=== PATIENT | male | born 1975 | race Caucasian/White ===

== ENCOUNTER 2023-01-23 11:51 | Outpatient (CLI) | payer OTHER | END 2023-01-23 11:52 | disposition critical access hospital (66) | LOC: EMS 11:51 | DX: R25.1 Tremor, unspecified (principal); R07.9 Chest pain, unspecified | CPT/HCPCS: A0425; A0427 ==

== ENCOUNTER 2023-01-23 12:27 | Emergency (ER) | payer OTHER ==
[2023-01-23] MEDS ORDERED: SODIUM CHLORIDE 0.9% 1,000 ML IV STA (12:35)
--- NOTE | 2023-01-23 12:47 | XRAY Report ---
PROCEDURE: Chest 1 View X-Ray INDICATIONS: CP TECHNIQUE: One view of the chest was acquired. COMPARISON: None. FINDINGS: Surgical changes and devices: None. Lungs and pleura: An incomplete inspiratory result is noted, with low lung volumes and crowding of t he vascular markings. No focal infiltrates are seen. No large pneumothorax or large pleural effusion can be seen. Mediastinum: Mediastinal contours appear normal. Heart size is normal. Bones and chest wall: No suspicious bony lesions. Overlying soft tissues appear unremarkable. IMPRESSION: Low lung volumes, without an acute abnormality seen. Reviewed by: Boom Diop MD on 01/23/2023 11:46 AM YELITZA Approved by: Boom Diop MD on 01/23/2023 11:46 AM YELITZA Station ID: [id number]
[2023-01-23 13:03] LABS: BASOPHILS % (AUTO) 0.6 %; EOSINOPHILS % (AUTO) 0.8 %; HCT - HEMATOCRIT 40.9 % (42.0-52.0); HGB - HEMOGLOBIN 13.6 g/dL (14.0-18.0); MEAN CORPUSCULAR HEMOGLOBIN 29.4 pg (27.0-31.0); MEAN CORPUSCULAR HGB CONC 33.3 g/dL (32.0-36.0); MEAN CORPUSCULAR VOLUME 88.5 fL (80.0-94.0); MEAN PLATELET VOLUME 8.6 fL (7.4-11.4); MONOCYTES # (AUTO) 0.5 10^3/uL (0.0-1.0); MONOCYTES % (AUTO) 10.9 %; NEUTROPHILS # (AUTO) 3.3 10^3/uL (1.5-6.6); NEUTROPHILS % (AUTO) 67.1 %; PLT - PLATELET COUNT 229 10^3/uL (130-450); RED BLOOD COUNT 4.62 10^6/uL (4.70-6.10); RED CELL DISTRIBUTION WIDTH 13.2 % (12.0-15.0); WHITE BLOOD COUNT 4.9 x10^3/uL (4.8-10.8)
[2023-01-23 13:16] LABS: ALBUMIN 4.5 g/dL (3.2-5.5); ALBUMIN/GLOBULIN RATIO 2.4 (1.0-2.2); ALKALINE PHOSPHATASE 70 IU/L (42-121); ALT ALANINE AMINOTRANSFERASE 16 IU/L (10-60); AST ASPARTATE AMINOTRANSFERASE 21 IU/L (10-42); BILIRUBIN,TOTAL 0.8 mg/dL (0.2-1.0); BUN - BLOOD UREA NITROGEN 13 mg/dL (6-20); CALCIUM 9.1 mg/dL (8.5-10.3); CARBON DIOXIDE - CO2 20 mmol/L (21-32); CHLORIDE 103 mmol/L (101-111); CK- CREATINE KINASE 105 IU/L (30-223); CREATININE 0.8 mg/dL (0.6-1.3); ETOH - ETHANOL < 10.0 mg/dL; GFR - MDRD 105 (>89); GLUCOSE 127 mg/dL (74-104); LIPASE 13 U/L (11-82); MAGNESIUM 1.6 mg/dL (1.7-2.3); POTASSIUM 3.4 mmol/L (3.5-4.5); SODIUM 136 mmol/L (135-145); TOTAL PROTEIN 6.4 g/dL (6.4-8.9)
[2023-01-23 13:21] LABS: TROPONIN I HIGH SENSITIVITY 3.2 ng/L (2.3-19.7)
--- NOTE | 2023-01-23 14:14 | ED Physician Documentation ---
History of Present Illness - Stated complaint Stated Complaint: TREMORS/ETOH - Chief complaint Chief Complaint: Neuro - History obtained from History obtained from: Patient - Additonal information Additional information: Patient is a 47-year-old male with no significant prior medical history presenting for evaluation of feeling generalized weakness, chest pain and muscle spasms starting around 1030 this morning. Patient states this started while he was showering at home. He reports feeling well prior to this. Denies any nausea, vomiting or diarrhea. He feels that his arms and legs are too heavy to lift. Denies head injury. Reports drinking daily. Denies having alcohol withdrawal symptoms in the past. Last alcohol intake was last night.Denies drug or cannabis use. Review of Systems Constitutional: denies: Fever Cardiac: reports: Chest pain / pressure Respiratory: denies: Dyspnea GI: denies: Abdominal Pain Neurologic: reports: Generalized weakness PD PAST MEDICAL HISTORY - Present Medications Home Medications: Ambulatory Orders Medication Instructions Recorded Confirmed Omeprazole Magnesium 20 mg PO DAILY 01/23/23 01/23/23 - Allergies Allergies/Adverse Reactions: Allergies Allergy/AdvReac Type Severity Reaction Status Date / Time No Known Drug Allergies Allergy Verified 01/23/23 12:32 PD ED PE NORMAL - General General: Alert and oriented X 3, No acute distress, Well developed/nourished - HEENT HEENT: Atraumatic, Moist mucous membranes - Neck Neck: Supple, no meningeal sign - Cardiac Cardiac: RRR, No murmur, Strong equal pulses - Respiratory Respiratory: No respiratory distress, Clear bilaterally - Abdomen Abdomen: Soft, Non tender, Non distended - Derm Derm: Warm and dry - Neuro Neuro: Alert and oriented X 3, 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 Relevant findings are: Rate 84, normal sinus rhythm, no STEMI Rate: Rate (enter#) (84) Rhythm: NSR Ischemia: No: ST elevation c/w ischemia, ST depression Compare to prior EKG: Old EKG unavailable - Labs Labs: Laboratory Tests 01/23/23 01/23/23 01/23/23 12:56 12:56 15:19 WBC 4.9 RBC 4.62 L Hgb 13.6 L Hct 40.9 L MCV 88.5 MCH 29.4 MCHC 33.3 RDW 13.2 Plt Count 229 MPV 8.6 Neut # (Auto) 3.3 Lymph # (Auto) 1.0 L Arthur # (Auto) 0.5 Eos # (Auto) 0.0 Baso # (Auto) 0.0 Absolute Nucleated RBC 0.00 Nucleated RBC % 0.0 Sodium 136 Potassium 3.4 L Chloride 103 Carbon Dioxide 20 L Anion Gap 13.0 BUN 13 Creatinine 0.8 Estimated GFR (MDRD) 105 Glucose 127 H Calcium 9.1 Magnesium 1.6 L Total Bilirubin 0.8 AST 21 ALT 16 Alkaline Phosphatase 70 Total Creatine Kinase 105 Troponin I High Sens 3.2 4.3 Total Protein 6.4 Albumin 4.5 Globulin 1.9 L Albumin/Globulin Ratio 2.4 H Lipase 13 Ethyl Alcohol < 10.0 PD Medical Decision Making - ED course Complexity details: reviewed results, re-evaluated patient, d/w patient ED course: Patient is a 47-year-old male presenting for evaluation of chest pain and generalized weakness since this morning. Reports a history of regular alcohol use. Clinically does not appear to be in withdrawal. CBC, chemistry, troponin and EKG were obtained and reviewed and without significant findings. Mild hypokalemia and magnesium which were replaced orally. PERC negative. Chest x- ray which I reviewed is also negative for pneumonia, effusion or cardiomegaly.Patient is feeling better here after IV fluids. He is ambulatory. Repeat troponin is also negative and patient is considered low risk per the heart score. Patient does not want any resources or medications to help with alcohol withdrawal but would like to try and stop on his own and states that he has been able to do this before without having withdrawal symptoms. Patient is counseled on need for close follow-up with primary care provider regarding his chest pain. He is advised on concerning symptoms to return for. 1413 - Pt appears Significantly improved. Awake and alert says he is feeling much better. Still feels a bit confused about what happened this morning. Departure - Departure Disposition: 01 Home, Self Care Clinical Impression: Generalized weakness, Chest pain, Alcohol abuse Condition: Stable Instructions: ED Chest Pain Atypical Unkn Cause, ED Weakness [facility] Comments: You were evaluated for weakness and chest pain and the exact etiology appears unclear at this time. Your labs are reassuring. Your potassium and magnesium are slightly low but these have been replaced with oral medication. I would recommend close follow-up with your primary care provider regarding your chest pain As well as for help with your alcohol addiction. Return to the emergency department with any concerning symptoms. [facility] [address] [place] [address] Main [facility] offers a monitored and safe setting for individuals withdrawing from alcohol and drugs, and counseling for individuals experiencing a mental health crisis. All services are provided in a 10-bed facility where intensive medical monitoring is required along with stabilization services. The goal of these services is to assess a clients mental health and substance use disorder related needs, and assist them in accessing the services they need to recover. Forms: PCP List Discharge Date/Time: 01/23/23 16:32
[2023-01-23] MEDS ORDERED: POTASSIUM BICARB 25 MEQ TABLET PO STA (14:37)
[2023-01-23] MEDS ORDERED: MAGNESIUM OXIDE 400 MG TABLET PO STA (14:38)
[2023-01-23 16:33] VITALS: BP 164/97; O2SAT 99
== END 2023-01-23 16:32 | disposition home or self-care (01) ==
LOC: ED 12:27
DX: R53.1 Weakness (principal); R07.9 Chest pain, unspecified; F10.10 Alcohol abuse, uncomplicated; Y90.0 Blood alcohol level of less than 20 mg/100 ml; E83.42 Hypomagnesemia; E87.6 Hypokalemia
CPT/HCPCS: 36415; 71045; 80053; 80320; 82550; 83690; 83735; 84484; 85025; 93005; 96360; 99284; A9270